=== PATIENT | male | born 1990 ===

== ENCOUNTER 2017-07-06 11:16 | Emergency (ER) | payer SELFPAY ==
[2017-07-06 11:25] VITALS: BP 146/89; PULSE 96; RESP 18; TEMP 98.1; O2SAT 99
--- NOTE | 2017-07-06 11:40 | C.PDOC ---
History Of Present Illness 26 y/o male presents to ED with complaints of cough and sore throat since yesterday. Patient reports daughter is sick at home with same symptoms and denies taking any medication for symptoms. Patient denies fever, chest pain, sob , nausea or vomiting. Time Seen by Provider: 07/06/17 11:31 Chief Complaint (Nursing): ENT Problem History Per: Patient History/Exam Limitations: no limitations Onset/Duration Of Symptoms: Days Current Symptoms Are (Timing): Still Present Location Of Pain: Throat Associated Symptoms: Sore Throat, Cough Past Medical History Reviewed: Historical Data, Nursing Documentation, Vital Signs Vital Signs: Last Vital Signs Temp 98.1 F 07/06/17 11:24 Pulse 96 H 07/06/17 11:24 Resp 18 07/06/17 11:24 BP 146/89 07/06/17 11:24 Pulse Ox 99 07/06/17 11:42 - Medical History PMH: No Chronic Diseases Surgical History: No Surg Hx Family History: States: No Known Family Hx - Social History Hx Alcohol Use: No Hx Substance Use: No - Immunization History Hx Tetanus Toxoid Vaccination: No Hx Influenza Vaccination: No Hx Pneumococcal Vaccination: No Review Of Systems Constitutional: Negative for: Fever, Chills ENT: Positive for: Throat Pain Cardiovascular: Negative for: Chest Pain Respiratory: Positive for: Cough. Negative for: Shortness of Breath Gastrointestinal: Negative for: Nausea, Vomiting Skin: Negative for: Rash Physical Exam - Physical Exam Appears: Non-toxic, No Acute Distress Skin: Warm, Dry, No Rash Head: Atraumatic, Normacephalic Eye(s): bilateral: Normal Inspection Ear(s): Bilateral: Normal Oral Mucosa: Moist Throat: Erythema, No Exudate, No Drooling Cardiovascular: Rhythm Regular Respiratory: Normal Breath Sounds, No Rales, No Rhonchi, No Wheezing Gastrointestinal/Abdominal: Soft, No Tenderness, No Guarding, No Rebound Extremity: Bilateral: Atraumatic, Normal ROM Neurological/Psych: Oriented x3, Normal Speech ED Course And Treatment O2 Sat by Pulse Oximetry: 99 (RA) Pulse Ox Interpretation: Normal Medical Decision Making Medical Decision Making: Patient with multi-symptom complaints started yesterday and has sick daughter at home. He has no fever, appears well, non-toxic and in no distress. Recommend supportive treatment Disposition Counseled Patient/Family Regarding: Diagnosis, Need For Followup, Rx Given - Disposition Referrals: [facility] [Outside] Disposition: HOME/ ROUTINE Disposition Time: 11:37 Condition: GOOD Additional Instructions: Take Tylenol or Motrin alternating every 4-6 hours for Fever 100.4F or higher. Rest and drink plenty of fluids. May also try lozenges, or cepacol spray avilable over the counter. Try taking over the counter antihistamine (Claritin, Елена, Zyrtec), Decongestant or Cough medicine (Mucinex) as needed every 6-8 hours. Follow up with your primary medical doctor or clinic in 1 week for further evaluation. 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 - Scribe Statement The provider has reviewed the documentation as recorded by the Scribabbey Pepper All medical record entries made by the Kevon were at my direction and personally dictated by me. I have reviewed the chart and agree that the record accurately reflects my personal performance of the history, physical exam, medical decision making, and the department course for this patient. I have also personally directed, reviewed, and agree with the discharge instructions and disposition.
== END 2017-07-06 12:10 | disposition home or self-care (01) ==
LOC: C.ER 11:16
DX: J06.9 Acute upper respiratory infection, unspecified (principal)